=== PATIENT | male | born 1980 | race Caucasian/White ===

== ENCOUNTER 2021-04-25 18:35 | Emergency (ER) | payer BC ==
--- NOTE | 2021-04-25 19:56 | CR ---
Chest: Portable view of the chest was obtained. Comparison: No prior chest imaging is available. Heart size and mediastinum are normal. Lungs are clear with no acute parenchymal change. Bony structures are within normal limits. Impression: 1. Nothing acute is seen on portable chest x-ray. Diagnostic code #1
--- NOTE | 2021-04-25 20:50 | EDM.PDOC ---
ED HPI GENERAL MEDICAL PROBLEM - General Chief Complaint: Cardiovascular Problem Stated Complaint: CHEST PAIN Time Seen by Provider: 04/25/21 19:31 Source of Information: Reports: Patient, RN Notes Reviewed - History of Present Illness INITIAL COMMENTS - FREE TEXT/NARRATIVE: 40 yr old male with onset of cough yesterday, still present but better today. Than developed chest ache and pressure this afternoon. No fever, chills or difficulty breathing. Had a work partner test positive for covid yesterday. No known health problems. Treatments BOTTOM CAGER: Reports: NSAIDS Chest Pain Score (Numeric/FACES): 6 - Related Data Allergies Allergy/AdvReac Type Severity Reaction Status Date / Time codeine Allergy Itching Verified 04/25/21 18:51 morphine Allergy Itching Verified 04/25/21 18:51 Penicillins Allergy Hives Verified 04/25/21 18:51 Home Meds: Home Meds . [No Known Home Meds] 04/25/21 [History] Past Medical History - Past Health History Medical/Surgical History: Denies Medical/Surgical History HEENT History: Reports: None Cardiovascular History: Reports: None Respiratory History: Reports: None Gastrointestinal History: Reports: None Genitourinary History: Reports: None Musculoskeletal History: Reports: None Neurological History: Reports: Concussion Psychiatric History: Reports: None Endocrine/Metabolic History: Reports: None Hematologic History: Reports: None Immunologic History: Reports: None Oncologic (Cancer) History: Reports: None Dermatologic History: Reports: None - Infectious Disease History Infectious Disease History: Reports: Chicken Pox - Past Surgical History HEENT Surgical History: Reports: Oral Surgery Social & Family History - Family History Family Medical History: No Pertinent Family History - Tobacco Use Tobacco Use Status *Q: Never Tobacco User - Caffeine Use Caffeine Use: Reports: Coffee - Recreational Drug Use Recreational Drug Use: No ED ROS GENERAL - Review of Systems Review Of Systems: See Below Constitutional: Denies: Fever, Chills HEENT: Denies: Throat Pain Respiratory: Reports: Cough. Denies: Shortness of Breath Cardiovascular: Reports: Chest Pain Endocrine: Denies: Fatigue GI/Abdominal: Denies: Abdominal Pain, Nausea, Vomiting Musculoskeletal: Denies: Neck Pain, Shoulder Pain, Arm Pain Skin: Reports: No Symptoms Neurological: Denies: Headache ED EXAM, GENERAL - Physical Exam Exam: See Below General Appearance: Alert, No Apparent Distress Throat/Mouth: Normal Inspection Head: Atraumatic Neck: Supple Respiratory/Chest: No Respiratory Distress, Lungs Clear, Normal Breath Sounds, Chest Non-Tender Cardiovascular: Regular Rate, Rhythm GI/Abdominal: Soft, Non-Tender. No: Guarding Back Exam: No: CVA Tenderness (L), CVA Tenderness (R) Extremities: Normal Inspection. No: Pedal Edema, Arm Pain, Leg Pain Neurological: Alert, Oriented, No Motor/Sensory Deficits Skin Exam: Warm, Dry, Normal Color Course - Vital Signs Last Recorded V/S: Last Vital Signs Temp 99.1 F 04/25/21 18:53 Pulse 96 04/25/21 18:53 Resp 20 04/25/21 18:53 BP 139/104 H 04/25/21 18:53 Pulse Ox 95 04/25/21 18:53 - Orders/Labs/Meds Orders: Active Orders 24 hr Category Date Time Status EKG 12 Lead [EK] Stat Ther 04/25/21 19:21 Ordered Labs: Laboratory Tests 04/25/21 04/25/21 04/25/21 Range/Units 19:27 19:27 19:55 WBC 9.23 H (4.23-9.07) K/mm3 RBC 4.42 L (4.63-6.08) M/mm3 Hgb 14.3 (13.7-17.5) gm/dl Hct 42.2 (40.1-51.0) % MCV 95.5 H (79.0-92.2) fl MCH 32.4 H (25.7-32.2) pg MCHC 33.9 (32.2-35.5) g/dl RDW Std Deviation 41.0 (35.1-43.9) fL Plt Count 171 (163-337) K/mm3 MPV 9.6 (9.4-12.3) fl Neut % (Auto) 79.0 H (34.0-67.9) % Lymph % (Auto) 10.7 L (21.8-53.1) % [place] % (Auto) 7.9 (5.3-12.2) % Eos % (Auto) 2.1 (0.8-7.0) Baso % (Auto) 0.3 (0.1-1.2) % Neut # (Auto) 7.29 H (1.78-5.38) K/mm3 Lymph # (Auto) 0.99 L (1.32-3.57) K/mm3 [place] # (Auto) 0.73 (0.30-0.82) K/mm3 Eos # (Auto) 0.19 (0.04-0.54) K/mm3 Baso # (Auto) 0.03 (0.01-0.08) K/mm3 Sodium 142 (136-145) mEq/L Potassium 3.9 (3.5-5.1) mEq/L Chloride 106 (98-107) mEq/L Carbon Dioxide 26 (21-32) mEq/L Anion Gap 13.9 (5-15) BUN 18 (7-18) mg/dL Creatinine 1.4 H (0.7-1.3) mg/dL Est Cr Clr Drug Dosing 73.14 mL/min Estimated GFR (MDRD) 56 (>60) mL/min BUN/Creatinine Ratio 12.9 L (14-18) Glucose 151 H (70-99) mg/dL Calcium 8.8 (8.5-10.1) mg/dL Total Bilirubin 0.6 (0.2-1.0) mg/dL AST 22 (15-37) U/L ALT 23 (16-63) U/L Alkaline Phosphatase 56 (46-116) U/L Troponin I < 0.017 (0.00-0.056) ng/mL Total Protein 6.8 (6.4-8.2) g/dl Albumin 3.8 (3.4-5.0) g/dl Globulin 3.0 gm/dL Albumin/Globulin Ratio 1.3 (1-2) SARS-CoV-2 RNA ([facility]) Negative (NEGATIVE) - Re-Assessments/Exams Free Text/Narrative Re-Assessment/Exam: 04/25/21 21:41 trop, EKG, CXR, nl, covid neg. Departure - Departure Time of Disposition: 20:49 Disposition: Home, Self-Care 01 Condition: Fair Clinical Impression: Atypical chest pain, Viral syndrome Instructions: Nonspecific Chest Pain, Adult, [id number], Viral Illness, Adult Referrals: PCP,None [Primary Care Provider] - Forms: ED Department Discharge Additional Instructions: Your heart and lungs have checked out well this evening as discussed. Follow up clinic as needed. Return to ED as needed if symptoms worsening in any way. Sepsis Event Note (ED) - Evaluation Sepsis Screening Result: No Definite Risk - Focused Exam Vital Signs: Vital Signs Temp Pulse Resp BP Pulse Ox 04/25/21 18:53 99.1 F 96 20 139/104 H 95 - My Orders Last 24 Hours: My Active Orders 04/25/21 19:21 EKG 12 Lead [EK] Stat - Assessment/Plan Last 24 Hours: My Active Orders 04/25/21 19:21 EKG 12 Lead [EK] Stat
== END 2021-04-25 20:55 | disposition home or self-care (01) ==
LOC: JD.ED 18:35
DX: R07.89 Other chest pain (principal); B34.9 Viral infection, unspecified; Z88.5 Allergy status to narcotic agent; Z88.6 Allergy status to analgesic agent; Z88.0 Allergy status to penicillin; Z20.822 Contact with and (suspected) exposure to COVID-19
CPT/HCPCS: 36415; 71045; 71045-26; 80053; 84484; 85025; 93005; 99284-25; U0002

== ENCOUNTER 2021-05-12 12:10 | Emergency (ER) | payer BC ==
[2021-05-12] MEDS ORDERED: Sodium Chloride 0.9% 10 ML Syringe FLUSH PRN (13:57)
[2021-05-12] MEDS ORDERED: Dexamethasone 4 MG/ML SDV IVPUSH ONE (13:58)
[2021-05-12] MEDS ORDERED: Sodium Chloride 0.9% 1,000 ML IV SCH (14:00)
--- NOTE | 2021-05-12 16:05 | CR ---
Chest: Portable view of the chest was obtained. Comparison: Prior chest x-ray of 04/25/21. Heart size and mediastinum are normal. Slight atelectasis or scarring is seen within the left lung base. Mild area of increased density is noted within the right upper lung. Minimal density is suggested within the right lung base. Bony structures are unremarkable. Impression: 1. Slight density within the right upper chest and possibly within the right lower chest. Difficult to exclude small area of pneumonia. 2. Portable chest x-ray is otherwise within normal limits. Diagnostic code #3
--- NOTE | 2021-05-12 16:12 | EDM.PDOC ---
ED HPI GENERAL MEDICAL PROBLEM - General Chief Complaint: Respiratory Problem Stated Complaint: PNEUMONIA,COVID + Time Seen by Provider: 05/12/21 13:24 Source of Information: Reports: Patient History Limitations: Reports: No Limitations - History of Present Illness INITIAL COMMENTS - FREE TEXT/NARRATIVE: The patient presents with a cough, fever, and shortness of breath. This started weeks ago. He was first seen at the walk in clinic and checked for COVID 19 and it was negative. He got checked because a coworker tested positive. He was seen here after that for chest pain. The work up here was negative. He then went to the clinic and was diagnosed with COVID 19 and pneumonia. He was started on doxycycline. He does not feel any better. He has generalized weakness, fatigue, runny nose, cough, and some diarrhea. He has no chest pain now. He also does not have any abdominal pain. Onset: Gradual Duration: Week(s): Severity: Moderate Improves with: Reports: None Worsens with: Reports: None Associated Symptoms: Reports: Cough, Fever/Chills - Related Data Allergies Allergy/AdvReac Type Severity Reaction Status Date / Time codeine Allergy Severe Itching Verified 05/12/21 13:31 morphine Allergy Severe Itching Verified 05/12/21 13:31 Penicillins Allergy Severe Hives Verified 05/12/21 13:31 Home Meds: Home Meds Benzonatate [Tessalon Perle] 100 mg PO ASDIRECTED 05/12/21 [History] Doxycycline [Vibramycin] 100 mg PO BID 05/12/21 [History] dexAMETHasone [Dexamethasone] 4 mg PO BID #14 tab 05/12/21 [Rx] Past Medical History - Past Health History Medical/Surgical History: Denies Medical/Surgical History HEENT History: Reports: None Cardiovascular History: Reports: None Respiratory History: Reports: None, Pneumonia, Recurrent Gastrointestinal History: Reports: None Genitourinary History: Reports: None Musculoskeletal History: Reports: None Neurological History: Reports: Concussion Psychiatric History: Reports: None Endocrine/Metabolic History: Reports: None Hematologic History: Reports: None Immunologic History: Reports: None Oncologic (Cancer) History: Reports: None Dermatologic History: Reports: None - Infectious Disease History Infectious Disease History: Reports: Chicken Pox, Novel Coronavirus - Past Surgical History HEENT Surgical History: Reports: Oral Surgery Social & Family History - Family History Family Medical History: No Pertinent Family History - Tobacco Use Tobacco Use Status *Q: Never Tobacco User - Caffeine Use Caffeine Use: Reports: Coffee - Recreational Drug Use Recreational Drug Use: No ED ROS GENERAL - Review of Systems Review Of Systems: See Below Constitutional: Reports: Fever, Chills, Malaise, Weakness, Fatigue HEENT: Reports: No Symptoms Respiratory: Reports: Shortness of Breath, Cough Cardiovascular: Reports: No Symptoms Endocrine: Reports: No Symptoms GI/Abdominal: Reports: Diarrhea. Denies: Abdominal Pain, Nausea, Vomiting : Reports: No Symptoms Musculoskeletal: Reports: No Symptoms Skin: Reports: No Symptoms ED EXAM, GENERAL - Physical Exam Exam: See Below Exam Limited By: No Limitations General Appearance: Alert, No Apparent Distress Ears: Normal External Exam Nose: Normal Inspection Throat/Mouth: Normal Inspection Head: Atraumatic, Normocephalic Neck: Normal Inspection Respiratory/Chest: No Respiratory Distress, Lungs Clear, Normal Breath Sounds Cardiovascular: Regular Rate, Rhythm, No Edema, No Murmur GI/Abdominal: Soft, Non-Tender, No Organomegaly, No Mass Back Exam: Normal Inspection Extremities: Normal Inspection #1 Interpretation EKG Date: 05/12/21 Time: 14:15 Rhythm: NSR Rate (Beats/Min): 77 [place]: Normal P-Wave: Present QRS: Normal ST-T: Normal QT: Normal Course - Vital Signs Last Recorded V/S: Last Vital Signs Temp 96.5 F L 05/12/21 13:28 Pulse 76 05/12/21 13:28 Resp 20 05/12/21 13:28 BP 119/83 05/12/21 13:28 Pulse Ox 95 05/12/21 13:28 - Orders/Labs/Meds Orders: Active Orders 24 hr Category Date Time Status Cardiac Monitoring [RC] . DIRECTED Care 05/12/21 13:57 Active EKG Documentation Completion [RC] STAT Care 05/12/21 13:58 Active Oxygen Therapy [RC] PRN Care 05/12/21 13:57 Active Peripheral IV Care [RC] . DIRECTED Care 05/12/21 13:58 Active FERRITIN [CHEM] Stat Lab 05/12/21 14:10 Received Sodium Chloride 0.9% [Normal Saline] 1,000 ml Med 05/12/21 14:00 Active IV .BOLUS Sodium Chloride 0.9% [Saline Flush] Med 05/12/21 13:57 Active 10 ml FLUSH ASDIRECTED PRN Peripheral IV Insertion Adult [OM.PC] Stat Oth 05/12/21 13:57 Ordered Medication Orders Sodium Chloride (Normal Saline) 1,000 mls @ 1,000 mls/hr IV .BOLUS FRANCHESCA Last Admin: 05/12/21 14:19 Dose: 1,000 mls/hr Documented by: BERTHA Sodium Chloride (Sodium Chloride 0.9% 10 Ml Syringe) 10 ml FLUSH ASDIRECTED PRN PRN Reason: Keep Vein Open Last Admin: 05/12/21 14:10 Dose: 10 ml Documented by: BERTHA Labs: Laboratory Tests 05/12/21 05/12/21 05/12/21 Range/Units 13:57 14:10 14:10 WBC 5.51 (4.23-9.07) K/mm3 RBC 4.72 (4.63-6.08) M/mm3 Hgb 14.7 (13.7-17.5) gm/dl Hct 44.0 (40.1-51.0) % MCV 93.2 H (79.0-92.2) fl MCH 31.1 (25.7-32.2) pg MCHC 33.4 (32.2-35.5) g/dl RDW Std Deviation 42.6 (35.1-43.9) fL Plt Count 190 (163-337) K/mm3 MPV 9.5 (9.4-12.3) fl Neut % (Auto) 64.5 (34.0-67.9) % Lymph % (Auto) 25.8 (21.8-53.1) % [place] % (Auto) 8.2 (5.3-12.2) % Eos % (Auto) 1.1 (0.8-7.0) Baso % (Auto) 0.2 (0.1-1.2) % Neut # (Auto) 3.56 (1.78-5.38) K/mm3 Lymph # (Auto) 1.42 (1.32-3.57) K/mm3 [place] # (Auto) 0.45 (0.30-0.82) K/mm3 Eos # (Auto) 0.06 (0.04-0.54) K/mm3 Baso # (Auto) 0.01 (0.01-0.08) K/mm3 PT 11.1 (9.7-12.0) SECONDS INR 1.04 APTT 26.9 (21.7-31.4) SECONDS D-Dimer, Quantitative 1.43 H (0.19-0.50) mg/L Sodium 140 (136-145) mEq/L Potassium 3.8 (3.5-5.1) mEq/L Chloride 104 (98-107) mEq/L Carbon Dioxide 26 (21-32) mEq/L Anion Gap 13.8 (5-15) BUN 13 (7-18) mg/dL Creatinine 1.0 (0.7-1.3) mg/dL Est Cr Clr Drug Dosing 102.40 mL/min Estimated GFR (MDRD) > 60 (>60) mL/min BUN/Creatinine Ratio 13.0 L (14-18) Glucose 111 H (70-99) mg/dL Lactic Acid (0.4-2.0) mmol/L Calcium 8.4 L (8.5-10.1) mg/dL Total Bilirubin 0.6 (0.2-1.0) mg/dL AST 18 (15-37) U/L ALT 17 (16-63) U/L Alkaline Phosphatase 43 L (46-116) U/L Lactate Dehydrogenase 304 H (85-227) U/L Troponin I < 0.017 (0.00-0.056) ng/mL C-Reactive Protein 4.7 H* (<1.0) mg/dL NT-Pro-B Natriuret Pep (0-125) pg/mL Total Protein 6.9 (6.4-8.2) g/dl Albumin 3.2 L (3.4-5.0) g/dl Globulin 3.7 gm/dL Albumin/Globulin Ratio 0.9 L (1-2) 05/12/21 05/12/21 Range/Units 14:10 14:10 WBC (4.23-9.07) K/mm3 RBC (4.63-6.08) M/mm3 Hgb (13.7-17.5) gm/dl Hct (40.1-51.0) % MCV (79.0-92.2) fl MCH (25.7-32.2) pg MCHC (32.2-35.5) g/dl RDW Std Deviation (35.1-43.9) fL Plt Count (163-337) K/mm3 MPV (9.4-12.3) fl Neut % (Auto) (34.0-67.9) % Lymph % (Auto) (21.8-53.1) % [place] % (Auto) (5.3-12.2) % Eos % (Auto) (0.8-7.0) Baso % (Auto) (0.1-1.2) % Neut # (Auto) (1.78-5.38) K/mm3 Lymph # (Auto) (1.32-3.57) K/mm3 [place] # (Auto) (0.30-0.82) K/mm3 Eos # (Auto) (0.04-0.54) K/mm3 Baso # (Auto) (0.01-0.08) K/mm3 PT (9.7-12.0) SECONDS INR APTT (21.7-31.4) SECONDS D-Dimer, Quantitative (0.19-0.50) mg/L Sodium (136-145) mEq/L Potassium (3.5-5.1) mEq/L Chloride (98-107) mEq/L Carbon Dioxide (21-32) mEq/L Anion Gap (5-15) BUN (7-18) mg/dL Creatinine (0.7-1.3) mg/dL Est Cr Clr Drug Dosing mL/min Estimated GFR (MDRD) (>60) mL/min BUN/Creatinine Ratio (14-18) Glucose (70-99) mg/dL Lactic Acid 0.7 (0.4-2.0) mmol/L Calcium (8.5-10.1) mg/dL Total Bilirubin (0.2-1.0) mg/dL AST (15-37) U/L ALT (16-63) U/L Alkaline Phosphatase (46-116) U/L Lactate Dehydrogenase (85-227) U/L Troponin I (0.00-0.056) ng/mL C-Reactive Protein (<1.0) mg/dL NT-Pro-B Natriuret Pep 55 (0-125) pg/mL Total Protein (6.4-8.2) g/dl Albumin (3.4-5.0) g/dl Globulin gm/dL Albumin/Globulin Ratio (1-2) Meds: Medications Generic Name Dose Route Start Last Admin Trade Name [place] PRN Reason Stop Dose Admin Sodium Chloride 1,000 mls @ 1,000 mls/hr 05/12/21 14:00 05/12/21 14:19 Normal Saline IV 1,000 mls/hr .BOLUS FRANCHESCA Administration Sodium Chloride 10 ml 05/12/21 13:57 05/12/21 14:10 Sodium Chloride 0.9% 10 Ml Syringe FLUSH 10 ml ASDIRECTED PRN Administration Keep Vein Open Discontinued Medications Generic Name Dose Route Start Last Admin Trade Name [place] PRN Reason Stop Dose Admin Dexamethasone 6 mg 05/12/21 13:58 05/12/21 14:15 Dexamethasone 4 Mg/Ml Sdv IVPUSH 05/12/21 13:59 6 mg ONETIME ONE Administration - Re-Assessments/Exams Free Text/Narrative Re-Assessment/Exam: 05/12/21 16:13 I ordered an IV NS 1L bolus, dexamethasone 6mg IV, labs, EKG and a CXR. His EKG shows a NSR with no acute changes. His CXR shows slight density within the right upper chest and possibly within the right lower chest. Difficult to exclude small area of pneumonia. Portable chest x-ray is otherwise within normal limits. His CBC looks good. His D-dimer was elevated at 1.45 consistent with the COVID diagnosis. LDH was elevated at 304. Lactic acid is normal at 0.7. Troponin is negative. CRP is elevated at 4.7. BNP was normal. He feels a little better. I feel this is a COVID pneumonia. He can stop the doxycycline and I will get him on dexamethasone. Departure - Departure Time of Disposition: 16:20 Disposition: Home, Self-Care 01 Condition: Good Clinical Impression: Pneumonia due to COVID-19 virus - Discharge Information *PRESCRIPTION DRUG MONITORING PROGRAM REVIEWED*: Not Applicable *COPY OF PRESCRIPTION DRUG MONITORING REPORT IN PATIENT YOAN: Not Applicable Prescriptions: dexAMETHasone [Dexamethasone] 4 mg PO BID #14 tab Referrals: Janel Crews PA-C [Primary Care Provider] - 1 Week Additional Instructions: Drink plenty of fluids. Take the dexamethasone 4mg 2 times per day for 7 days. Stop taking the doxycycline. This appears to be COVID pneumonia. Take tylenol or motrin for any fever. Follow up with your doctor within a week. Please return if you are worse. Sepsis Event Note (ED) - Evaluation Sepsis Screening Result: No Definite Risk - Focused Exam Vital Signs: Vital Signs Temp Pulse Resp BP Pulse Ox 05/12/21 13:28 96.5 F L 76 20 119/83 95 - My Orders Last 24 Hours: My Active Orders 05/12/21 13:57 Cardiac Monitoring [RC] . DIRECTED Oxygen Therapy [RC] PRN Sodium Chloride 0.9% [Saline Flush] 10 ml FLUSH ASDIRECTED PRN Peripheral IV Insertion Adult [OM.PC] Stat 05/12/21 13:58 EKG Documentation Completion [RC] STAT Peripheral IV Care [RC] . DIRECTED 05/12/21 14:00 Sodium Chloride 0.9% [Normal Saline] 1,000 ml IV .BOLUS 05/12/21 14:10 FERRITIN [CHEM] Stat - Assessment/Plan Last 24 Hours: My Active Orders 05/12/21 13:57 Cardiac Monitoring [RC] . DIRECTED Oxygen Therapy [RC] PRN Sodium Chloride 0.9% [Saline Flush] 10 ml FLUSH ASDIRECTED PRN Peripheral IV Insertion Adult [OM.PC] Stat 05/12/21 13:58 EKG Documentation Completion [RC] STAT Peripheral IV Care [RC] . DIRECTED 05/12/21 14:00 Sodium Chloride 0.9% [Normal Saline] 1,000 ml IV .BOLUS 05/12/21 14:10 FERRITIN [CHEM] Stat
== END 2021-05-12 16:49 | disposition home or self-care (01) ==
LOC: JD.ED 12:10
DX: U07.1 COVID-19 (principal); J12.82 Pneumonia due to coronavirus disease 2019; Z88.5 Allergy status to narcotic agent; Z88.0 Allergy status to penicillin; Z88.6 Allergy status to analgesic agent
CPT/HCPCS: 36415; 71045; 80053; 82728; 83605; 83615; 83880; 84484; 85025; 85379; 85610; 85730; 86140; 93005; 96374; 99285; J1100; J7030; 93010; 99283